=== PATIENT | female | born 1990 | race Two or more races ===

== ENCOUNTER → 2024-06-28 10:54 | Outpatient (REF) | payer OTHER, SELFPAY ==
--- NOTE | 2024-06-28 13:01 | EEG.RPT ---
Electroencephalogram Report
Recording
Date of EE06/28/24
Type of EEG: Routine
Length of EEG recordin minutes
Done with Video Recording: Yes
Patient Status: Outpatient
Recording Conditions: Awake and Drowsy
Hyperventilation Performed: Yes
Photic Stimulation Performed: Yes
Report
LESS THAN 1 HOUR EEG REPORT
EEG INTERPRETATION:
Unremarkable EEG for age
CLINICAL CORRELATION:
A normal EEG does not rule out a diagnosis of epilepsy. If clinical suspicion for seizure persists, a prolonged recording may be warranted.
Clinical correlation is advised.
METHODS:
A 21 channel digitized electroencephalogram (EEG) was performed in the [facility]. The 10/20 international system of electrode placement was used with ECG and lateral/vertical eye movements recorded. Persyst quantitative EEG
analysis was performed.
ELECTROENCEPHALOGRAPHER IMPRESSION(S):
Quality of study
Good
Background
Unremarkable, well maintained, medium amplitude alpha-frequency and unremarkable anterior-posterior voltage gradient
With eye opening the background activity changed to a low voltage mixture of frequencies.
Sleep
Drowsiness present
Hyperventilation
Did not activate the record
Photic Stimulation
Did not activate the record
ECG
Normal sinus rhythm
== END ==
LOC: EEG 10:54
PROVIDERS: ATTENDING PHYSICIAN Psychiatry & Neurology Neurology; FAMILY PHYSICIAN Family Medicine
DX: R40.20 Unspecified coma (principal)
CPT/HCPCS: 95816

== ENCOUNTER → 2024-06-29 08:31 | Outpatient (REF) | payer OTHER, SELFPAY | LOC: MRI 3T 08:31 | PROVIDERS: ATTENDING PHYSICIAN Psychiatry & Neurology Neurology; FAMILY PHYSICIAN Family Medicine | DX: R40.20 Unspecified coma (principal) | CPT/HCPCS: 70551 ==

== ENCOUNTER → 2024-09-23 15:32 | Outpatient (REF) | payer OTHER, SELFPAY | LOC: HWRAD 15:32 | PROVIDERS: ATTENDING PHYSICIAN Family Medicine | DX: M79.672 Pain in left foot (principal) | CPT/HCPCS: 73630 ==